=== PATIENT | male | born 1985 | race Caucasian/White ===

== ENCOUNTER 2019-07-31 12:34 | Emergency (ER) | payer OTHER ==
[~2019-07-31] VITALS: Ht 185.4 cm; Wt 90.7 kg
[2019-07-31] MEDS ORDERED: FLEXERIL PO (12:47)
[2019-07-31] MEDS ORDERED: GLIPIZIDE 10 MG10 MG PO (12:48)
[2019-07-31 13:07] LABS: INFLUENZA A ANTIGEN Negative (Negative); INFLUENZA B ANTIGEN Negative (Negative)
[2019-07-31 13:59] LABS: HEMATOCRIT 52.5 % (42.0-52.0); HEMOGLOBIN 18.9 gm/dL (14.0-18.0); MCH 34.8 pg (26.0-34.0); MCHC 35.9 g/dL (28.0-37.0); MCV 96.9 fL (80.0-100.0); NUCLEATED RBCS 0 /100WBC; PLATELET COUNT* 180 thou/uL (150-400); RBC 5.42 mil/uL (4.50-6.00); WBC 15.6 thou/uL (4.0-11.0)
[2019-07-31 14:01] LABS: CALCIUM 8.7 mg/dL (8.5-10.1); CREATININE 1.2 mg/dL (0.6-1.3)
[2019-07-31 14:07] LABS: ALBUMIN 4.2 g/dL (3.4-5.0); TOTAL BILIRUBIN 0.9 mg/dL (<0.1-1.0); TOTAL PROTEIN 8.4 g/dL (6.4-8.2)
[2019-07-31 14:24] LABS: ABSOLUTE LYMPHOCYTES 0.8 thou/uL (0.8-5.3); ABSOLUTE MONOCYTES 0.5 thou/uL (0.0-1.2); ABSOLUTE NEUTROPHILS 14.4 thou/uL (1.6-8.1); PLATELET ESTIMATE ADEQUATE
[2019-07-31] MEDS ORDERED: ONDANSETRON ODT4 MG PO (14:34)
[2019-07-31] MEDS ORDERED: TYLENOL WITH CO1 TA1 PO (14:34)
[2019-07-31] MEDS ORDERED: LOPERAMIDE 2 MG2 M1 PO (14:34)
[2019-07-31 14:49] VITALS: BP 115/79
== END 2019-07-31 14:51 | disposition home or self-care (01) ==
LOC: M.ERS 12:34
PROVIDERS: Family Medicine; Physician Assistant
DX: R11.2 Nausea with vomiting, unspecified (principal); R19.7 Diarrhea, unspecified; E11.9 Type 2 diabetes mellitus without complications; Z88.1 Allergy status to other antibiotic agents

== ENCOUNTER 2020-04-04 13:06 | Emergency (ER) | payer OTHER ==
[~2020-04-04] VITALS: Ht 182.9 cm; Wt 89.8 kg
[~2020-04-04 13:06] MED LIST: FLEXERIL PO; GLIPIZIDE 10 MG10 MG PO; LOPERAMIDE 2 MG2 M1 PO; ONDANSETRON ODT4 MG PO; TYLENOL WITH CO1 TA1 PO
[2020-04-04] MEDS ORDERED: METFORMIN HCL500 M3 PO (13:21)
[2020-04-04] MEDS ORDERED: DOXYCYCLINE 10100 M2 PO (14:16)
[2020-04-04 14:20] VITALS: BP 129/76
== END 2020-04-04 14:20 | disposition home or self-care (01) ==
LOC: M.ERS 13:06
DX: S61.210A Laceration without foreign body of right index finger without damage to nail, initial encounter (principal); S61.212A Laceration without foreign body of right middle finger without damage to nail, initial encounter; E11.9 Type 2 diabetes mellitus without complications; Z88.0 Allergy status to penicillin; Z88.1 Allergy status to other antibiotic agents; W26.8XXA Contact with other sharp object(s), not elsewhere classified, initial encounter; Y93.89 Activity, other specified; Y92.89 Other specified places as the place of occurrence of the external cause; Y99.8 Other external cause status